=== PATIENT | male | born 1930 | race Caucasian/White ===

== ENCOUNTER 2016-06-15 | Inpatient (IN) | payer MEDICARE, MEDICAID ==
[~2016-06-15] MED LIST: NORCO 5/3251 TAB PO; SAW PALMETTO500 MG PO; [UNRECOGNIZED DRUG - OTHER]
[2016-06-15] MEDS ORDERED: CENTRUM SILVER1 EAC3 PO (10:37)
[2016-06-15] MEDS ORDERED: LIPITOR40 M1 PO (10:37)
[2016-06-15] MEDS ORDERED: COUMADIN1 M1 PO (10:38)
[2016-06-15] MEDS ORDERED: TOPROL XL25 M1 PO (10:39)
[2016-06-15] MEDS ORDERED: SENNOSIDES-DOC1 EAC1 PO (10:40)
[2016-06-15] MEDS ORDERED: POLY-IRON150 M1 PO (10:40)
[2016-06-15] MEDS ORDERED: SYNTHROID25 MC1 PO (10:41)
[2016-06-15] MEDS ORDERED: ZOLOFT50 M1 PO (10:42)
[2016-06-15] MEDS ORDERED: FLOMAX0.4 M1 PO (10:42)
[2016-06-15] MEDS ORDERED: ACETAMINOPHEN650 M2 PO (10:43)
[2016-06-15] MEDS ORDERED: NORCO 5-325 TA1 EACH PO (10:43)
[2016-06-15] MEDS ORDERED: CALCIUM500 M4 PO (10:44)
[2016-06-15] MEDS ORDERED: REFRESH TEARS15 M1 LEFT EYE (10:50)
[2016-06-15] MEDS ORDERED: DUREZOL5 M1 LEFT EYE (10:50)
[2016-06-15] MEDS ORDERED: TIMOPTIC10 ML RIGHT EYE (10:52)
[2016-06-15] MEDS ORDERED: LASIX20 M1 PO (14:52)
[2016-06-15] MEDS ORDERED: [UNRECOGNIZED DRUG - OTHER] OP (14:55)
[2016-06-23] MEDS ORDERED: AMOX TR-K400 MG/5 M PO ×2 (16:16→16:19)
[2016-06-23] MEDS ORDERED: IPRAT-ALBUT 0.5-3 ML NEB (16:33)
[2016-06-23] MEDS ORDERED: SEROQUEL25 M2 PO (16:44)
[2016-06-23] MEDS ORDERED: LASIX20 M1 PO (16:48)
[2016-06-23] MEDS ORDERED: POTASSIUM CHLO20 ME2 PO (16:48)
[2016-06-23] MEDS ORDERED: REFRESH PLUS1 EACH LEFT EYE (16:50)
[2016-06-23] MEDS ORDERED: SENNA-DOCUSATE1 EAC1 PO (16:52)
[2016-06-23] MEDS ORDERED: CULTURELLE1 EAC1 PO (16:53)
[2016-06-23] MEDS ORDERED: COLACE100 M1 PO (16:54)
[2016-06-23] MEDS ORDERED: MIRALAX17 G2 PO (16:56)
== END 2016-06-23 17:55 | DRG 871 ==
DX: A41.9 Sepsis, unspecified organism (principal); I21.4 Non-ST elevation (NSTEMI) myocardial infarction; J96.01 Acute respiratory failure with hypoxia; I50.33 Acute on chronic diastolic (congestive) heart failure; K80.00 Calculus of gallbladder with acute cholecystitis without obstruction; I69.354 Hemiplegia and hemiparesis following cerebral infarction affecting left non-dominant side; D62 Acute posthemorrhagic anemia; R65.20 Severe sepsis without septic shock; F32.9 Major depressive disorder, single episode, unspecified; I73.9 Peripheral vascular disease, unspecified; I71.4 Abdominal aortic aneurysm, without rupture; E78.5 Hyperlipidemia, unspecified; I35.1 Nonrheumatic aortic (valve) insufficiency; I34.0 Nonrheumatic mitral (valve) insufficiency; H40.9 Unspecified glaucoma; I48.2 Chronic atrial fibrillation; K59.09 Other constipation; E03.9 Hypothyroidism, unspecified; H54.42 Blindness, left eye, normal vision right eye; I10 Essential (primary) hypertension; R79.1 Abnormal coagulation profile; Z88.1 Allergy status to other antibiotic agents; Z88.5 Allergy status to narcotic agent; Z79.01 Long term (current) use of anticoagulants; Z79.899 Other long term (current) drug therapy; Z96.641 Presence of right artificial hip joint; Z87.891 Personal history of nicotine dependence; Z96.651 Presence of right artificial knee joint